=== PATIENT | female | born 1980 ===

== ENCOUNTER 2021-01-21 12:12 | Outpatient (CLI) | payer OTHER | END 2021-01-21 12:13 | disposition home or self-care (01) | LOC: BICULT 12:12 | PROVIDERS: ATTEND Family Medicine | DX: D64.9 Anemia, unspecified (principal); N92.0 Excessive and frequent menstruation with regular cycle; N83.201 Unspecified ovarian cyst, right side; R93.89 Abnormal findings on diagnostic imaging of other specified body structures | CPT/HCPCS: 76856 ==

== ENCOUNTER 2021-06-09 08:07 | Outpatient (CLI) | payer OTHER | END 2021-06-09 08:08 | disposition home or self-care (01) | LOC: BICULT 08:07 | PROVIDERS: ATTEND Family Medicine | DX: N83.201 Unspecified ovarian cyst, right side (principal) | CPT/HCPCS: 76856; 93976 ==